=== PATIENT | female | born 1955 | race Caucasian/White ===

== ENCOUNTER 2023-07-23 14:15 | Emergency (ER) | payer MEDICARE, BC ==
[2023-07-23] MEDS ORDERED: Lidocaine 1% PF 5 ML VIAL ONE (14:54)
[2023-07-23] MEDS ORDERED: Bacitracin 1 PK ONE (15:28)
== END 2023-07-23 15:37 | disposition home or self-care (01) ==
LOC: ERS 14:15
DX: S61.412A Laceration without foreign body of left hand, initial encounter (principal); E06.3 Autoimmune thyroiditis; W26.0XXA Contact with knife, initial encounter; Y93.89 Activity, other specified; Z79.82 Long term (current) use of aspirin; Z79.899 Other long term (current) drug therapy
CPT/HCPCS: 12001; 99282